=== PATIENT | female | born 1950 | race Caucasian/White ===

== ENCOUNTER 2022-03-31 11:43 | Inpatient (IN) ==
[2022-04-01] MEDS ORDERED: *HR* LORazepam 0.5 MG TABLET PO PRN (11:04)
[2022-04-01] MEDS ORDERED: Morphine Sulfate Oral CONC 10 MG/0.5 ML ORAL.SYG SL PRN ×2 (11:04→13:22)
[2022-04-01] MEDS ORDERED: Acetaminophen 325 MG TABLET PO PRN (11:05)
[2022-04-01] MEDS ORDERED: Gabapentin 300 MG CAPSULE PO SCH (13:00)
[2022-04-01] MEDS: *HR* LORazepam Oral Conc 2 MG/ML SL PRN (15:09)
[2022-04-01] MEDS ORDERED: *HR* Metformin 500 MG TABLET PO SCH (17:00)
[2022-04-01] MEDS ORDERED: *HR* Warfarin 5 MG TABLET PO SCH (18:00)
[2022-04-01] MEDS: Morphine Sulfate Oral CONC 10 MG/0.5 ML ORAL.SYG SL PRN ×2 (18:30→22:35)
[2022-04-01] MEDS: Metoprolol XL (24 HR) Succ 50 MG TAB.ER.24H PO SCH (21:32)
[2022-04-01 23:41] VITALS: PULSE 57; O2SAT 90
[2022-04-02] MEDS: Morphine Sulfate Oral CONC 10 MG/0.5 ML ORAL.SYG SL PRN ×5 (02:04→11:18)
[2022-04-02 06:44] VITALS: BP 137/106; TEMP 97.3
[2022-04-02] MEDS ORDERED: Loratadine 10 MG TABLET PO SCH (09:00)
[2022-04-02] MEDS ORDERED: lisinopriL 20 MG TABLET PO SCH (09:00)
[2022-04-02] MEDS ORDERED: hydroCHLOROthiazide 25 MG TABLET PO SCH (09:00)
[2022-04-02] MEDS: *HR* LORazepam Oral Conc 2 MG/ML SL PRN (09:33)
[2022-04-02] MEDS: Metoprolol XL (24 HR) Succ 50 MG TAB.ER.24H PO SCH (09:38)
[2022-04-02] MEDS ORDERED: Morphine Sulfate Oral CONC 10 MG/0.5 ML ORAL.SYG SL PRN (10:14)
[2022-04-02] MEDS ORDERED: Hyoscyamine SL 0.125 MG TAB.SUBL SL PRN (10:16)
[2022-04-02] MEDS ORDERED: *HR* LORazepam Oral Conc 2 MG/ML SL PRN (10:17)
[2022-04-02] MEDS ORDERED: Scopolamine Patch 1.5 MG PATCH.TD72 TD SCH (10:30)
== END 2022-04-02 13:00 | disposition expired | DRG 951 ==
LOC: 3NENU 04-01 11:45
PROVIDERS: ADMIT Internal Medicine Hospice and Palliative Medicine; ATTEND Internal Medicine Hospice and Palliative Medicine